=== PATIENT | male | born 1995 | race American Indian/Alaskan Native ===

== ENCOUNTER 2021-05-29 17:03 | Emergency (ER) | payer SELFPAY ==
[2021-05-29] MEDS ORDERED: ONDANSETRON 4 MG/2 ML INJ IV ONE (17:37)
[2021-05-29] MEDS ORDERED: MORPHINE 4 MG/1 ML INJ IV ONE (17:37)
[2021-05-29] MEDS ORDERED: ACETAMINOPHEN 500 MG TAB PO ONE (17:38)
--- NOTE | 2021-05-29 18:25 | Cat Scan Report ---
CT ABDOMEN AND PELVIS WITHOUT CONTRAST INDICATION / CLINICAL INFORMATION: abdominal pain and fever. TECHNIQUE: Axial CT images were obtained through the abdomen and pelvis without IV contrast. All CT scans at this location are performed using CT dose reduction for ALARA by means of automated exposure control. COMPARISON: None available. FINDINGS: LOWER CHEST: No significant abnormality. LIVER: No significant abnormality. GALLBLADDER: No significant abnormality. BILE DUCTS: No significant abnormality. PANCREAS: No significant abnormality. SPLEEN: No significant abnormality. ADRENALS: No significant abnormality. RIGHT KIDNEY / URETER: No significant abnormality. LEFT KIDNEY / URETER: No significant abnormality. STOMACH / SMALL BOWEL: No significant abnormality. COLON: Mild diffuse colonic thickening with mild adjacent inflammation.. APPENDIX: Nonvisualized. PERITONEUM: No free fluid. No free air. No fluid collection. LYMPH NODES: No significant adenopathy. VASCULAR STRUCTURES: No significant abnormality. URINARY BLADDER: No significant abnormality. REPRODUCTIVE ORGANS: No significant abnormality. ADDITIONAL FINDINGS: None. SKELETAL SYSTEM: No significant abnormality. IMPRESSION: Mild diffuse colitis. Signer Name: Yann Eckert MD Signed: 05/29/2021 6:21 PM Workstation Name: [id number]
[2021-05-29 18:27] LABS: Basophils % (Auto) 0.2 % (0.0-1.8); Eosinophils # (Auto) 0.1 K/mm3 (0.0-0.4); Hematocrit 36.3 % (35.5-45.6); Hemoglobin 11.9 gm/dl (11.8-15.2); Lymphocytes # (Auto) 0.8 K/mm3 (1.2-5.4); Lymphocytes % (Auto) 12.4 % (13.4-35.0); Mean Corpuscular HGB Conc 33 % (32-34); Mean Corpuscular Volume 77 fl (84-94); Monocytes # (Auto) 0.9 K/mm3 (0.0-0.8); Monocytes % (Auto) 13.7 % (0.0-7.3); Platelet Count 318 K/mm3 (140-440); Red Blood Count 4.71 M/mm3 (3.65-5.03); Red Cell Distribution Width 15.1 % (13.2-15.2)
[2021-05-29 18:39] LABS: Alanine Aminotransferase 12 units/L (7-56); Albumin 3.7 g/dL (3.9-5); BUN/Creatinine Ratio 7; Blood Urea Nitrogen 7 mg/dL (9-20); Calcium 9.4 mg/dL (8.4-10.2); Hemolysis Index 8
[2021-05-29] MEDS ORDERED: KETOROLAC 30 MG/1 ML INJ IV ONE (18:55)
[2021-05-29] MEDS ORDERED: POTASSIUM CHLORIDE ER 20 MEQ TAB PO ONE (18:56)
[2021-05-29] MEDS ORDERED: levoFLOXacin 500 MG TAB PO ONE (19:13)
[2021-05-29] MEDS ORDERED: metroNIDAZOLE 500 MG TAB PO ONE (19:13)
--- NOTE | 2021-05-29 19:17 | Emergency Department Report ---
ED Abdominal Pain HPI - General Chief Complaint: Abdominal Pain Stated Complaint: ABDOMINAL PAIN Time Seen by Provider: 05/29/21 17:36 Source: patient Mode of arrival: Ambulatory Limitations: No Limitations - History of Present Illness Initial Comments: 25 yo black male with no pmh presents to the ed for evaluation of 2.5 weeks history of abdominal pain. He states that he has had intermittent fever and diarrhea. He states that he has tried all the OTC medications that he can buy otc without improvement. He denies n/v, dysuria, and penile discharge. MD Complaint: abdominal pain -: Gradual, week(s) (2.5) Location: LLQ Severity scale (0 -10): 7 Quality: aching Consistency: constant Improves With: nothing Worsens With: nothing Associated Symptoms: diarrhea, fever, chills. denies: nausea, vomiting, constipation, dysuria, hematemesis, hematochezia, melena, hematuria Treatments Prior to Arrival: NSAIDs, antacids, other (several otc medications of different varieties. ) - Related Data Previous Rx's Medication Instructions Recorded Last Taken Type Ciprofloxacin HCl 500 mg PO BID #14 tab 05/29/21 Unknown Rx Naproxen [Naprosyn] 500 mg PO BID #14 tab 05/29/21 Unknown Rx Ondansetron [Zofran Odt] 4 mg PO Q8HR PRN #12 tab.rapdis 05/29/21 Unknown Rx metroNIDAZOLE [Flagyl] 500 mg PO Q12HR #14 tab 05/29/21 Unknown Rx Allergies Allergy/AdvReac Type Severity Reaction Status Date / Time No Known Allergies Allergy Unverified 05/29/21 17:24 ED Review of Systems ROS: Stated complaint: ABDOMINAL PAIN Other details as noted in HPI Comment: All other systems reviewed and negative Constitutional: chills, fever, weakness. denies: diaphoresis, malaise Eyes: denies: eye pain ENT: denies: ear pain Respiratory: denies: cough, orthopnea, shortness of breath, SOB with exertion, SOB at rest, stridor, wheezing Cardiovascular: denies: chest pain, palpitations, dyspnea on exertion, orthopnea, edema, syncope, paroxysmal nocturnal dyspnea Endocrine: no symptoms reported Gastrointestinal: abdominal pain, diarrhea. denies: nausea, vomiting, hematemesis, melena, hematochezia Genitourinary: testicular pain. denies: urgency, dysuria, frequency, hematuria, discharge Skin: denies: rash Neurological: weakness. denies: headache, numbness, paresthesias, abnormal gait Psychiatric: denies: anxiety Hematological/Lymphatic: denies: easy bleeding, easy bruising ED Past Medical Hx - Medications Home Medications: Home Medications Medication Instructions Recorded Confirmed Last Taken Type Ciprofloxacin HCl 500 mg PO BID #14 tab 05/29/21 Unknown Rx Naproxen [Naprosyn] 500 mg PO BID #14 tab 05/29/21 Unknown Rx Ondansetron [Zofran Odt] 4 mg PO Q8HR PRN #12 tab.rapdis 05/29/21 Unknown Rx metroNIDAZOLE [Flagyl] 500 mg PO Q12HR #14 tab 05/29/21 Unknown Rx ED Physical Exam - General Limitations: No Limitations General appearance: alert, in no apparent distress - Head Head exam: Present: atraumatic, normocephalic - Eye Eye exam: Present: normal appearance. Absent: conjunctival injection - Neck Neck exam: Present: normal inspection - Respiratory Respiratory exam: Present: normal lung sounds bilaterally. Absent: respiratory distress, wheezes, rales, rhonchi, chest wall tenderness, accessory muscle use - Cardiovascular Cardiovascular Exam: Present: tachycardia, normal heart sounds - GI/Abdominal GI/Abdominal exam: Present: soft, tenderness (bilateral lower quad), normal bowel sounds. Absent: distended, guarding, rebound, rigid - Extremities Exam Extremities exam: Present: normal inspection - Back Exam Back exam: Present: normal inspection, full ROM. Absent: tenderness, CVA tenderness (R), CVA tenderness (L) - Neurological Exam Neurological exam: Present: alert, oriented X3 - Psychiatric Psychiatric exam: Present: normal affect, normal mood - Skin Skin exam: Present: warm, dry, intact, normal color ED Course Vital Signs 05/29/21 05/29/21 17:24 20:51 Temperature 102.8 F H 98.2 F Pulse Rate 104 H 67 Respiratory 18 18 Rate Blood Pressure 131/80 134/68 [Right] O2 Sat by Pulse 98 98 Oximetry ED Medical Decision Making - Lab Data Result diagrams: 05/29/21 17:52 05/29/21 17:52 - Radiology Data Radiology results: report reviewed CT abdomen and pelvis without contrast= mild diffuse colitis. - Medical Decision Making 25 yo black male with no pmh presents to the ed for evaluation of 2.5 weeks history of abdominal pain. He states that he has had intermittent fever and diarrhea. He states that he has tried all the OTC medications that he can buy otc without improvement. He denies n/v, dysuria, and penile discharge. No gross abnormalities noted on labs except K of 3.2. CT abdomen and pelvis without constrast noted to have mild, diffuse colitis. Given the high fever for past few days, patient's colitis will be treated with 7 day coarse of Flagly 500mg BID along with Cipro 500mg BID. Patient was given one time dose of KCL 40mg po. He was advised to take medications as prescribed and follow up with pcp or GI if no improvement or worsening symptoms. He verbalized understanding of and agreement with plan of care. Critical care attestation.: If time is entered above; I have spent that time in minutes in the direct care of this critically ill patient, excluding procedure time. ED Disposition Clinical Impression: Colitis Disposition: 01 HOME / SELF CARE / HOMELESS Is pt being admited?: No Does the pt Need Aspirin: No Condition: Stable Instructions: Colitis Additional Instructions: Take medications as prescribed. Follow-up with primary care provider or gastroenterology if no improvement or worsening symptoms. Follow-up in the ED as needed. Prescriptions: Ciprofloxacin HCl 500 mg PO BID #14 tab metroNIDAZOLE [Flagyl] 500 mg PO Q12HR #14 tab Naproxen [Naprosyn] 500 mg PO BID #14 tab Ondansetron [Zofran Odt] 4 mg PO Q8HR PRN #12 tab.rapdis PRN Reason: Nausea And Vomiting Referrals: RAPHAEL MORRISON MD [Staff Physician] - 3-5 Days Time of Disposition: 19:18
[2021-05-29 20:40] LABS: Bilirubin,Urine NEG (Negative); Blood,Urine NEG (Negative); Color,Urine Amber (Yellow); Mucus,Urine 3+ /HPF; Urobilinogen,Urine < 2.0 mg/dL (<2.0)
[2021-05-29 20:53] VITALS: BP 134/68
== END 2021-05-29 20:56 | disposition home or self-care (01) ==
LOC: ED 17:03
DX: K52.9 Noninfective gastroenteritis and colitis, unspecified (principal); Z79.899 Other long term (current) drug therapy
CPT/HCPCS: 36415; 74176; 80053; 81001; 83690; 85025; 87086; 96374; 96375; 99284; J1885; J2270; J2405